=== PATIENT | male | born 1950 | race African-American/Black ===

== ENCOUNTER 2019-03-14 13:12 | Outpatient (CLI) | payer MEDICARE, OTHER ==
--- NOTE | 2019-03-14 22:00 | Consultation ---
DATE OF CONSULTATION: 03/14/2019 CHIEF COMPLAINT: Referral for screening colonoscopy and history of gastric ulcer. HISTORY OF PRESENT ILLNESS: This is a very pleasant 68-year-old male with past medical history of perforated ulcer in 1983 requiring surgery. He was referred to us for evaluation of screening colonoscopy. Also given prior history of gastric ulcer, he was referred for endoscopy. PAST MEDICAL HISTORY: 1. Perforated gastric ulcer in 1983. 2. Seizure disorder. 3. Hypercholesterolemia. 4. Constipation. 5. BPH. PAST SURGICAL HISTORY: History of gastric resection. MEDICATIONS: Please see medication reconciliation list. ALLERGIES: No known allergies. FAMILY HISTORY: Dad had cancer. He does not know what kind of cancer. SOCIAL HISTORY: Denies any tobacco, but he drinks beer here and there. Denies any IV drug abuse. REVIEW OF SYSTEMS: A 10-point review of systems was performed and pertinent positives in HPI. PHYSICAL EXAMINATION: GENERAL: This is a well-developed male, in no acute distress. HEENT: Normocephalic and atraumatic. Sclerae anicteric. NECK: Supple. No evidence of obvious lymphadenopathy. CARDIOVASCULAR: Regular rate and rhythm. Plus S1 and S2. No obvious murmur. LUNGS: Clear to auscultation bilaterally. ABDOMEN: Positive bowel sounds. Soft. There is a scar in the abdomen from prior abdominal surgeries. No rebound. No guarding. No peritoneal sign. EXTREMITIES: No cyanosis. No clubbing. No edema ASSESSMENT/PLAN: This is a 68-year-old male with need for screening colonoscopy. Also, he has history of gastric ulcer, would need endoscopy. The patient was informed of the risks and benefits of the procedure and he understood. He actually had a colonoscopy many years ago, so he understands it. So, plan for 03/30/2019 per the patient's request. I want to thank, Dr. Mena, for this kind referral. Dequan Hebert M.D. DR: MIGUELINA JOB#: [id number] CC: Chu Mena MD; Fax#: [phone]
== END 2019-03-14 15:05 | disposition home or self-care (01) ==
LOC: PAN 13:12
DX: K25.9 Gastric ulcer, unspecified as acute or chronic, without hemorrhage or perforation (principal); G40.909 Epilepsy, unspecified, not intractable, without status epilepticus; E78.00 Pure hypercholesterolemia, unspecified; Z80.9 Family history of malignant neoplasm, unspecified
CPT/HCPCS: 99203

== ENCOUNTER 2019-04-15 09:02 | Day surgery (SDC) | payer MEDICARE, OTHER ==
[~2019-04-15] VITALS: Ht 180.3 cm; Wt 59.0 kg
[2019-04-15] VITALS (7 sets, daily range): BP systolic 98–152; BP diastolic 58–85
[2019-04-15] MEDS ORDERED: OMEPRAZOLE20 M2 ORAL (09:43)
[2019-04-15] MEDS ORDERED: ATORVASTATIN CA40 MG ORAL (09:43)
[2019-04-15] MEDS ORDERED: DILANTIN100 MG ORAL (09:43)
[2019-04-15] MEDS ORDERED: DOXAZOSIN MESYLA2 MG ORAL (09:43)
--- NOTE | 2019-04-15 10:36 | Pre-Procedure Note/Attestation ---
Pre-Procedure Note/Attestation Complete Prior to Procedure Planned Procedure: not applicable Procedure Narrative: esophagogastroduodenoscopy and colonoscopy Indications for Procedure Pre-Operative Diagnosis: GERD, screening colon Attestation I attest that I discussed the nature of the procedure; its benefits; risks and complications; and alternatives (and the risks and benefits of such alternatives ), prior to the procedure, with the patient (or the patient's legal inventory representative). I attest that, if there was a reasonable possibility of needing a blood transfusion, the patient (or the patient's legal inventory representative) was given the [facility] standardized written summary, pursuant to the [place] Blood Safety Act ([place] Health and Safety Code # 1645, as amended). I attest that I re-evaluated the patient just prior to the surgery and that there has been no change in the patient's H&P, except as documented below: Dequan Hebert MD Apr 15, 2019 10:36
--- NOTE | 2019-04-15 10:37 | Short Stay Surgery H&P ---
History of Present Illness History of Present Illness Chief Complaint recent office note HPI Chan Penaloza is a 68 year old male who was admitted on for Hemochromatosis, History Of Gastric Ulcers Patient History Allergies: Coded Allergies: No Known Allergies (Unverified , 03/29/19) Medication History Scheduled Atorvastatin Calcium* (Atorvastatin Calcium*), 40 MG ORAL BEDTIME, (Reported) Doxazosin Mesylate (Doxazosin Mesylate), 2 MG ORAL DAILY, (Reported) Omeprazole (Omeprazole), 20 MG ORAL DAILY, (Reported) Phenytoin Sodium Extended* (Dilantin*), 300 MG ORAL BEDTIME, (Reported) Physical Exam Vital Signs Last Vital Signs Date Time Temp Pulse Resp B/P (MAP) Pulse Ox O2 Delivery O2 Flow Rate FiO2 04/15/19 09:35 Room Air 04/15/19 09:33 97.8 79 18 152/85 99 Plan Attestation Are the patient's medical conditions optimized for surgery? Dequan Hebert MD Apr 15, 2019 10:37
[2019-04-15] MEDS ORDERED: fentaNYL 100 mcg/2 mL IV ONE (10:44)
[2019-04-15] MEDS ORDERED: Propofol 200mg/20ml IV ONE (10:44)
--- NOTE | 2019-04-15 11:19 | Endoscopy Procedure Note ---
Endoscopy Procedure Note General Indication for Procedure: screening colon, GERD Procedures Performed: EGD Operative Findings/Diagnosis: colon polyp Specimen: yes Pt Tolerated Procedure Well: Yes Estimated Blood Loss: none Anesthesia Anesthesiologist: pankaj Anesthesia: MAC Inserted Devices Implant(s) used?: No Quality Quality of Bowel Preparation: Good Did scope reach the cecum?: Yes Was there any complications?: No GI Core Measures 50 yrs or older w/o bx or poly: No 10yrs. F/U recommended: Yes If not recommended, why?: Above average risk 18 years or older w/prev. colo: No Dequan Hebert MD Apr 15, 2019 11:19
--- NOTE | 2019-04-15 11:30 | Immediate Post-Op Evaluation ---
Immediate Post-Op Evalulation Immediate Post-Op Evalulation Procedure: EGD Colonoscopy Date of Evaluation: Apr 15, 2019 Time of Evaluation: 11:29 IV Fluids: 600 Blood Products: none Estimated Blood Loss: none Urinary Output: none Blood Pressure Systolic: 109 Blood Pressure Diastolic: 74 Pulse Rate: 78 Respiratory Rate: 20 O2 Sat by Pulse Oximetry: 98 Temperature (Fahrenheit): 97.6 Nausea: No Vomiting: No Complications none Patient Status: awake, patent, none Hydration Status: adequate Gabriel Gifford MD Apr 15, 2019 11:30
--- NOTE | 2019-04-15 13:01 | 48 Hour Post Anesthesia Eval ---
Post Anesthesia Evaluation Procedure: EGD Colonoscopy Date of Evaluation: Apr 15, 2019 Time of Evaluation: 12:59 Blood Pressure Systolic: 132 0: 58 Pulse Rate: 68 Respiratory Rate: 20 Temperature (Fahrenheit): 97.8 O2 Sat by Pulse Oximetry: 98 Airway: patent Nausea: No Vomiting: No Pain Intensity: 1 Hydration Status: adequate Cardiopulmonary Status: stable Mental Status/LOC: patient returned to baseline Follow-up Care/Observations: n/a Post-Anesthesia Complications: none Follow-up care needed: ready to discharge Gabriel Gifford MD Apr 15, 2019 13:01
--- NOTE | 2019-04-15 16:15 | Procedure Note ---
DATE OF PROCEDURE: 04/15/2019 SURGEON: Dequan Hebert M.D. PROCEDURE: Upper endoscopy with biopsy and colonoscopy with biopsy. ANESTHESIA: Per Dr. Gifford. INSTRUMENT: Olympus flexible adult upper endoscope and colonoscope. INDICATIONS: Screening colonoscopy evaluation and chronic GERD. The procedure, risks, benefits, and possible consequences, including hemorrhage, aspiration, perforation and infection, and alternative treatments, were explained to the patient/legal guardian by Dr. Dequan Hebert and the patient/legal guardian understood and accepted these risks. PROCEDURE IN DETAIL: After informed consent was obtained and the patient was adequately sedated, Olympus upper endoscope was advanced from mouth into the second portion of the duodenum and retroflexion was performed in the stomach. The patient had mild atrophic gastritis with small hiatal hernia. No obvious ulceration or mass was seen. Random biopsy from antrum was obtained to rule out H. pylori infection. At this time, the upper endoscope was retrieved and the patient was turned over for colonoscopy. First, rectal exam was performed, which was positive for internal hemorrhoids. Then, the scope was advanced from the rectum into the cecum documented by appendix orifice, ileocecal valve, and right upper quadrant palpation. Quality of prep was overall good. This was a challenging colonoscopy. One polyp was seen in the transverse colon, roughly measured about 4 to 5 mm, removed with the cold biopsy forceps technique. The rest of the examination was within normal limits. The patient also had one single diverticula in the proximal ascending colon. Retroflexion of rectum showed evidence of medium-sized internal hemorrhoids. SUMMARY OF FINDINGS: 1. Small hiatal hernia. 2. Atrophic gastritis, status post biopsy. 3. Internal hemorrhoids. 4. One colonic polyp removed. See above for details. 5. Single diverticula in the right colon. RECOMMENDATIONS: 1. Follow up pathology and treat accordingly. 2. We recommend repeat colonoscopy in 5 years. Dequan Hebert M.D. DR: FLETCHER JOB#: [id number] CC:
== END 2019-04-15 13:05 | disposition home or self-care (01) ==
LOC: GAS 09:02
DX: Z12.11 Encounter for screening for malignant neoplasm of colon (principal); K21.9 Gastro-esophageal reflux disease without esophagitis; K44.9 Diaphragmatic hernia without obstruction or gangrene; K64.8 Other hemorrhoids; K63.5 Polyp of colon; K57.90 Diverticulosis of intestine, part unspecified, without perforation or abscess without bleeding; Z79.899 Other long term (current) drug therapy; K29.50 Unspecified chronic gastritis without bleeding; D12.3 Benign neoplasm of transverse colon
CPT/HCPCS: 43239; 45380; 93005; J2704; J3010; 94003; 94150

== ENCOUNTER 2019-05-04 13:44 | Outpatient (CLI) | payer MEDICARE, OTHER ==
[~2019-05-04 13:44] MED LIST: ATORVASTATIN CA40 MG ORAL; DILANTIN100 MG ORAL; DOXAZOSIN MESYLA2 MG ORAL; OMEPRAZOLE20 M2 ORAL
--- NOTE | 2019-05-04 14:20 | General Progress Note ---
Assessment/Plan Assessment/Plan: INDICATIONS: Screening colonoscopy evaluation and chronic GERD. The procedure, risks, benefits, and possible consequences, including hemorrhage, aspiration, perforation and infection, and alternative treatments, were explained to the patient/legal guardian by Dr. Dequan Hebert and the patient/legal guardian understood and accepted these risks. PROCEDURE IN DETAIL: After informed consent was obtained and the patient was adequately sedated, Olympus upper endoscope was advanced from mouth into the second portion of the duodenum and retroflexion was performed in the stomach. The patient had mild atrophic gastritis with small hiatal hernia. No obvious ulceration or mass was seen. Random biopsy from antrum was obtained to rule out H. pylori infection. At this time, the upper endoscope was retrieved and the patient was turned over for colonoscopy. First, rectal exam was performed, which was positive for internal hemorrhoids. Then, the scope was advanced from the rectum into the cecum documented by appendix orifice, ileocecal valve, and right upper quadrant palpation. Quality of prep was overall good. This was a challenging colonoscopy. One polyp was seen in the transverse colon, roughly measured about 4 to 5 mm, removed with the cold biopsy forceps technique. The rest of the examination was within normal limits. The patient also had one single diverticula in the proximal ascending colon. Retroflexion of rectum showed evidence of medium-sized internal hemorrhoids. SUMMARY OF FINDINGS: 1. Small hiatal hernia. 2. Atrophic gastritis, status post biopsy. 3. Internal hemorrhoids. 4. One colonic polyp removed. See above for details. 5. Single diverticula in the right colon. RECOMMENDATIONS: 1. Follow up pathology and treat accordingly. 2. We recommend repeat colonoscopy in 5 years. shorty off omeprazole Subjective ROS Limited/Unobtainable: Yes Allergies: Coded Allergies: No Known Allergies (Unverified , 03/29/19) Objective General Appearance: alert EENT: normal ENT inspection Neck: supple Cardiovascular: normal rate Respiratory/Chest: decreased breath sounds Abdomen: normal bowel sounds, non tender, soft Extremities: non-tender Dequan Hebert MD May 04, 2019 14:20
[2019-05-04 15:20] VITALS: BP 123/69
== END 2019-05-04 15:44 | disposition home or self-care (01) ==
LOC: PAN 13:44
DX: K21.9 Gastro-esophageal reflux disease without esophagitis (principal); K44.9 Diaphragmatic hernia without obstruction or gangrene; K29.40 Chronic atrophic gastritis without bleeding; K64.8 Other hemorrhoids; K63.5 Polyp of colon; K57.90 Diverticulosis of intestine, part unspecified, without perforation or abscess without bleeding